=== PATIENT | female | born 1975 | race Caucasian/White ===

== ENCOUNTER 2019-08-09 20:09 | Emergency (ER) | payer OTHER, SELFPAY ==
[2019-08-09 20:10] VITALS: BP 163/93; PULSE 92; RESP 32; TEMP 36.6; O2SAT 100; BMI 36.8
--- NOTE | 2019-08-09 20:15 | EKG12_ITS ---
Test Reason : CP Blood Pressure : / mmHG Vent. Rate : 088 BPM Atrial Rate : 088 BPM P-R Int : 192 ms QRS Dur : 074 ms QT Int : 380 ms P-R-T Axes : 043 000 042 degrees QTc Int : 459 ms Normal sinus rhythm Low voltage QRS Borderline ECG Confirmed by SHANNAN CHIU ([id number]), sports editor SETH VÁSQUEZ ([id number]) on 08/14/2019 12:29:34 PM Referred By: BO Confirmed By:SHANNAN CHIU
[2019-08-09 20:17] VITALS: PULSE 87; RESP 30; O2SAT 100
--- NOTE | 2019-08-09 20:20 | RAD_ITS ---
STUDY: X-RAY CHEST REASON FOR EXAM: Female, 44 years old. Chest pain. TECHNIQUE: Single AP portable view of the chest. COMPARISON: None. FINDINGS: The lungs are clear and expanded. There is no demonstrated pleural abnormality. Normal size heart. Normal mediastinum and mauricio. Normal visualized pulmonary arteries. Normal visualized aortic arch and descending thoracic aorta. Normal visualized thoracic spine. Normal visualized ribs, clavicles, and shoulders. There is no demonstrated abnormality of the visualized soft tissue structures of the upper abdomen. RAD/Chest 1 View (Portable) IMPRESSION: No acute cardiopulmonary disease. Electronically Signed: Frantz Diaz DO at 20:42 EDT Tel [phone], Service support ,
[2019-08-09 20:26] LABS: Absolute Lymphocyte Count 3.07 X10^3/uL (0.83-4.51); Absolute Neutrophil Count 8.1 X10^3/uL (2.0-7.7); Basophil# 0.05 X10^3/uL; Basophil% 0.4 % (0-1); Eosinophil# 0.24 X10^3/uL; Hematocrit 43.1 % (37-47); Hemoglobin 15.2 g/dL (12.0-15.0); Lymphocyte # 3.07 X10^3/ul (4.0); Lymphocyte % 25.2 % (19-41); Mean Corp Hgb Conc 35.3 g/dL (32-36); Mean Corpuscular Volume 93.7 fL (81-99); Mean Platelet Vol. 9.3 fl (6.2-12.0); Monocyte# 0.68 X10^3/uL; Monocyte% 5.6 % (0-10); NRBC Flagged by Analyzer 0 % (0-5); Neutrophil # 8.09 X10^3/uL (2.7-7.7); Neutrophil % 66.6 % (47-70); Platelet Count 355 K/mm3 (150-450); RBC Distribution Width SD 41.3 fl (35.1-43.9); White Blood Count 12.2 K/mm3 (4.4-11.0)
[2019-08-09] MEDS: Aspirin 81 MG TAB.CHEW 324 MG PO (20:27)
[2019-08-09 20:40] LABS: Anion Gap 6 (5-15); BUN 12 mg/dL (7-18); BUN/Creat Ratio 12.5 RATIO (10-20); Calcium,Total 9.8 mg/dL (8.5-10.1); Chloride 106 mmol/L (98-107); Creatinine, Serum 0.96 mg/dL (0.55-1.02); EST Glomerular Filtration Rate 67 mL/min (>60); Est Glom Filt Rate - Afr Amer 81 mL/min (>60); Estimated Creatinine Clearance 67.29 ml/min; Glucose 95 mg/dL (74-106); Potassium 3.4 mmol/L (3.5-5.1); Sodium Level 138 mmol/L (136-145)
[2019-08-09 20:43] LABS: D-Dimer Quantitative (DVT/PE) < 0.27 FEU/ug/m (0.27-0.49)
[2019-08-09 21:16] LABS: AST(SGOT) 20 U/L (15-37); Alanine Aminotransfer ALT/SGPT 30 U/L (13-56); Albumin, Serum 4.4 g/dL (3.2-5.0); Alkaline Phosphatase 82 U/L (45-117); Globulin 3.9 g/dL (2.2-4.2); Protein, Total 8.3 g/dL (6.4-8.2)
--- NOTE | 2019-08-09 21:30 | EKG12_ITS ---
Test Reason : REPEAT Blood Pressure : / mmHG Vent. Rate : 063 BPM Atrial Rate : 063 BPM P-R Int : 234 ms QRS Dur : 080 ms QT Int : 410 ms P-R-T Axes : 005 -17 016 degrees QTc Int : 419 ms Sinus rhythm with 1st degree A-V block Low voltage QRS Borderline ECG Confirmed by SHANNAN CHIU ([id number]), online editor SETH VÁSQUEZ ([id number]) on 08/14/2019 12:29:17 PM Referred By: BO Confirmed By:SHANNAN CHIU
[2019-08-09 21:33] VITALS: BP 120/83; PULSE 72; RESP 16; O2SAT 98
--- NOTE | 2019-08-09 21:52 | ED.DCSUM_ITS ---
- ER Visit Summary Date of Service: 08/09/19 Chief Complaint: Chest discomfort History of Present Illness: The patient is a 44 F history of prior back surgery back fusion. No recent surgery or hospitalization. Patient states his atypical gas-like sensation in her chest at times is uncomfortable. Not associated with exertion. No exertional chest pain nor any exertional dyspnea. No calf pain or swelling. No recent travel, surgery, admission or immobilization. She is never had a DVT or PE. The pain is not pleuritic. She denies any hemoptysis. There is no significant family history of cardiac disease. She is a non-smoker. She denies any shortness of breath. States it can atypical moving discomfort the last several days also in her back. And today it was more anterior. Not associated with food. No abdominal pain. No fever or chills. Physical Examination: Middle-aged female. Anxious. At times upset and tearful. Vital signs are stable. Pulse ox on percent room air no signs of hypoxia. HEENT exam unremarkable. Neck nontender no lymphadenopathy. Lungs good auscultation bilaterally. Heart regular rhythm no murmur rate about 90. Chest wall nontender. No ecchymosis or bruising. No subcu air crepitance. Abdomen soft nontender. Normal bowel sounds no peritoneal signs. No tenderness. No right upper quadrant pain. No Chapin sign. Remedies moves all 4. Calves are nontender without edema or cords. Normal marine pipefitter strength. Normal dorsi plantar flexion. Equal symmetrical radial pulses. Neurologically she is awake and alert with no focal motor or sensory deficits. Back nontender. Her NIH score is 0. Her skin is normal. Test Results: CBC normal. Hemoglobin 15. Electrolytes unremarkable normal creatinine and gap. Liver enzymes normal. Troponin normal. D-dimer normal. Chest x-ray normal. Normal cardiac silhouette and mediastinum. I did go over the x-ray with patient and family. EKG #1 sinus rhythm rate 88 no acute signs of VA or ischemia. EKG #2 done hour and a half after the first again is a sinus rhythm rate of 63 with no acute signs of VA nor ischemia. Emergency Department Course and Treatment: Patient was treated with p.o. aspirin. His atypical story. He has had no recent exertional chest pain or dyspnea. He has very limited cardiac risk factors. She is a non-smoker. No significant family history. Her work-up is negative. On repeat exam at 2150 she is doing well. Feels better. Currently she is having no discomfort. I discussed with her and her family are comfortable being discharged home. Treatment Plan: I spoke with Dr. Lucille Estrada covering for the patient's primary care physician Dr. Cathryn Zaman they will ensure close follow-up and outpatient stress testing if they feel that is necessary. I discussed all this with the patient. Follow-up with PCP tomorrow. Disposition: Discharge Impression: Atypical chest pain uncertain etiology This note was generated with [employer] dictation software. It may contain incorrect words, spelling, and punctuation that were not noted in review of the chart prior to signing ED Disposition - Plan for ED Patient: Referrals: Cathryn Zaman MD [Primary Care Provider] -
--- NOTE | 2019-08-09 21:58 | ED.DEP ---
ED Disposition - Plan for ED Patient: Disposition: Home or Assisted Living Instructions: CHEST PAIN, Uncertain Cause Referrals: Cathryn Zaman MD [Primary Care Provider] - 1 Day Additional Instructions: Your work-up tonight is completely unremarkable. I spoke with Dr. Lucille lugo covering for Dr. Zaman. Call their office tomorrow and set up follow-up appointment with Dr. Zaman they can discuss outpatient stress testing if they feel that is appropriate. Return to the ER if you are feeling worse.
[2019-08-09 22:05] VITALS: BP 125/76; PULSE 69; RESP 16; O2SAT 98
== END 2019-08-09 22:06 | disposition home or self-care (01) ==
PROVIDERS: Emergency Provider Emergency Medicine; Family Provider Internal Medicine; PCP Internal Medicine
DX: R07.89 Other chest pain (principal); Z98.1 Arthrodesis status
CPT/HCPCS: 71045; 80048; 80076; 84484; 85025; 85379; 93005; 99285; A4216

== ENCOUNTER → 2019-08-11 11:09 | Outpatient (CLI) | payer OTHER, SELFPAY ==
[2019-08-09 20:10] VITALS: BMI 36.8
--- NOTE | 2019-08-11 11:12 | RAD_ITS ---
STUDY: X-RAY - CERVICAL SPINE REASON FOR EXAM: Female, 44 years old. TECHNIQUE: 5 view(s) of the cervical spine were obtained. COMPARISON: None FINDINGS: Normal anterior atlantoaxial articulation. Normal odontoid process. There is straightening of the normal cervical lordosis. Normal vertebral bodies and endplates. Normal disc space heights. Normal visualized intervertebral neuroforamina. The soft tissue structures are unremarkable. RAD/Cerv Spine 4 or 5 Views IMPRESSION: No disc space narrowing or foraminal stenosis. Electronically Signed: Bandar Nash MD (Brooks) at 17:17 EDT , Service support ,
== END ==
PROVIDERS: Family Provider Internal Medicine; PCP Internal Medicine; Referring Provider Nurse Practitioner; Visit Provider Nurse Practitioner
DX: R07.89 Other chest pain (principal); M54.2 Cervicalgia
CPT/HCPCS: 72050; 84484

== ENCOUNTER → 2019-08-21 11:04 | Outpatient (CLI) | payer OTHER, SELFPAY ==
[2019-08-09 20:10] VITALS: BMI 36.8
== END ==
PROVIDERS: Family Provider Internal Medicine; PCP Internal Medicine; Referring Provider Nurse Practitioner; Visit Provider Nurse Practitioner
DX: M54.2 Cervicalgia (principal); R07.89 Other chest pain
CPT/HCPCS: 93225; 93226

== ENCOUNTER → 2019-09-11 09:47 | Outpatient (CLI) | payer OTHER, SELFPAY ==
--- NOTE | 2019-09-11 09:50 | ECHOCS_ITS ---
Reason For Study: ATYPICAL CHEST PAIN Procedure This was a 2D Doppler, Color Flow transthoracic echocardiogram. The study was technically difficult. Contrast injection was performed. Exam performed in department. Left Ventricle Normal LV size. Left ventricular systolic function is normal. The estimated ejection fraction is 65 %. No evidence for diastolic dysfunction. No regional wall motion abnormalities noted. Right Ventricle Normal RV size. Normal systolic function. Atria Normal left atrium. Normal right atrium. No doppler evidence for ASD. Mitral Valve There is no mitral annular calcification. Equivocal mitral valve prolapse. Trivial mitral valve insufficiency. Tricuspid Valve Normal tricuspid valve. Trivial tricuspid valve insufficiency. Unable to estimate RV systolic pressure/pulmonary artery pressure due to technically difficult study. Aortic Valve Trisinus/trileaflet aortic valve. Normal aortic valve. Pulmonic Valve The pulmonic valve is not well visualized. Trivial pulmonic valve insufficiency. Great Vessels Normal sized aortic root. Pericardium/Pleural No pericardial effusion. Medication 22 gauge I.V. with prn adaptor inserted into right arm. Definity3.0ml given slow IV push to enhance endocardial definition. MMode/2D Measurements & Calculations LVIDd: 4.8 cm IVSd: 0.81 cm Ao root diam: 3.1 cm LVIDs: 3.7 cm LVPWd: 0.84 cm RVDd: 4.0 cm FS: 23.9 % LAV(MOD-bp): 46.0 ml EDV(MOD-sp4): 142.6 ml EDV(MOD-sp2): 113.2 ml LAV(MOD-bp) Indexed: 22.6 ml/m2 ESV(MOD-sp4): 64.7 ml EF(MOD-sp2): 50.5 % LAV(MOD-sp2): 44.2 ml EF(MOD-sp4): 54.6 % LAV(MOD-sp4): 43.9 ml SV(MOD-sp4): 77.9 ml SV(MOD-sp2): 57.1 ml LA A4 area: 17.1 cm2 LA dimension(2D): 3.4 cm RA A4 area: 15.3 cm2 Time Measurements MV dec time: 0.19 sec Doppler Measurements & Calculations MV E max sunny: 80.8 cm/sec Lat Peak E' Sunny: 10.1 cm/sec Med Peak E' Sunny: 8.2 cm/sec MV A max sunny: 55.6 cm/sec E/E' lat: 8.0 E/E' med: 9.9 MV E/A: 1.5 Ao V2 max: 103.3 cm/sec LV V1 max: 95.9 cm/sec PA V2 max: 90.3 cm/sec Ao max P.3 mmHg LV V1 max P.7 mmHg Interpretation Summary The study was technically difficult. Contrast injection was performed. Left ventricular systolic function is normal. The estimated ejection fraction is 65 %. Equivocal mitral valve prolapse. Trivial mitral valve insufficiency. Trivial tricuspid valve insufficiency. Trivial pulmonic valve insufficiency. Unable to estimate RV systolic pressure/pulmonary artery pressure due to technically difficult study. No evidence for diastolic dysfunction. Ordering Physician: Saira Gorman Referring Physician: Saira Gorman Performed By: Rox Hutton, GARRY, RVT
== END ==
PROVIDERS: Family Provider Nurse Practitioner; PCP Nurse Practitioner; Referring Provider Nurse Practitioner; Visit Provider Nurse Practitioner
DX: R07.89 Other chest pain (principal); M54.2 Cervicalgia
CPT/HCPCS: 93306; Q9957; A4216; C8929

== ENCOUNTER → 2019-10-16 09:52 | Outpatient (CLI) | payer OTHER, SELFPAY ==
[2019-10-16 10:12] LABS: Absolute Lymphocyte Count 1.62 X10^3/uL (0.83-4.51); Absolute Neutrophil Count 5.8 X10^3/uL (2.0-7.7); Basophil# 0.03 X10^3/uL; Basophil% 0.4 % (0-1); Eosinophil# 0.28 X10^3/uL; Eosinophils% 3.4 % (0-5); Hematocrit 41.6 % (37-47); Hemoglobin 14.2 g/dL (12.0-15.0); Lymphocyte # 1.62 X10^3/ul (4.0); Lymphocyte % 19.8 % (19-41); Mean Corp Hgb Conc 34.1 g/dL (32-36); Mean Corpuscular Hgb 32.4 pg (27.0-32.0); Mean Platelet Vol. 9.5 fl (6.2-12.0); Monocyte% 4.9 % (0-10); NRBC Flagged by Analyzer 0 % (0-5); Neutrophil # 5.83 X10^3/uL (2.7-7.7); Platelet Count 296 K/mm3 (150-450); RBC Distribution Width CV 12.1 % (11.6-14.6); RBC Distribution Width SD 42.3 fl (35.1-43.9); Red Blood Count 4.38 M/mm3 (4.2-5.4); White Blood Count 8.2 K/mm3 (4.4-11.0)
[2019-10-16 10:21] LABS: ALB/GLOB Ratio 1.2 RATIO (0.9-2.4); AST(SGOT) 38 U/L (15-37); Alanine Aminotransfer ALT/SGPT 62 U/L (13-56); Albumin, Serum 3.8 g/dL (3.2-5.0); Alkaline Phosphatase 109 U/L (45-117); Anion Gap 6 (5-15); BUN 13 mg/dL (7-18); BUN/Creat Ratio 15.7 RATIO (10-20); Calcium,Total 8.7 mg/dL (8.5-10.1); Chloride 110 mmol/L (98-107); Cholesterol 194 mg/dL (200); Creatinine, Serum 0.83 mg/dL (0.55-1.02); EST Glomerular Filtration Rate 79 mL/min (>60); Est Glom Filt Rate - Afr Amer 96 mL/min (>60); Globulin 3.3 g/dL (2.2-4.2); Glucose 99 mg/dL (74-106); High Density Lipoprotein 51 mg/dL; Potassium 4.3 mmol/L (3.5-5.1); Protein, Total 7.1 g/dL (6.4-8.2); Sodium Level 142 mmol/L (136-145); Triglycerides 92 mg/dL; Very Low Density Lipoprotein 18 mg/dL (5-40)
[2019-10-17 10:44] LABS: Myoglobin, Serum 28 ng/mL (25-58)
== END ==
PROVIDERS: Family Provider Nurse Practitioner; PCP Nurse Practitioner; Referring Provider Nurse Practitioner; Visit Provider Nurse Practitioner
DX: R07.89 Other chest pain (principal)
CPT/HCPCS: 80053; 80061; 83874; 84484; 85025

== ENCOUNTER → 2019-10-21 10:19 | Outpatient (CLI) | payer OTHER, SELFPAY ==
[2019-10-19 09:29] VITALS: BMI 35.0
--- NOTE | 2019-10-21 10:23 | US_ITS ---
STUDY: ABDOMINAL ULTRASOUND - RIGHT UPPER QUADRANT REASON FOR VISIT: Female, 44 years old chest pain with abnormal laboratory values TECHNIQUE: Ultrasound evaluation of the right upper quadrant was performed with real-time and static nix-scale imaging. TECHNICAL QUALITY: Adequate. COMPARISON: None. FINDINGS: Liver: The liver measures 17 cm. There is normal echogenicity of the liver. The bile ducts are within normal limits. There is hepatic color flow. The direction of portal flow is hepatopetal. There is no demonstrated mass lesion. Gallbladder: Normal distended gallbladder. The gallbladder wall measures 2.9 mm. There is a negative sonographic Chapin''s sign. There is no pericholecystic fluid. No shadowing gallstones. There is a 7 mm nonmobile, nonshadowing structure of the dependent gallbladder wall without vascular flow demonstrated. Common Bile Duct (C.B.D.): The common bile duct measures 4 mm. Pancreas: Normal size of the head, body and tail of the pancreas. There is normal echogenicity of the pancreas. There is no demonstrated pancreatic mass or cyst. Right Kidney: Normal size of the right kidney. The right kidney measures 11.4 x 5.5 x 5.4 cm. Normal renal cortex. The right cortex measures 2.0 cm. There is no demonstrated renal mass or cyst. There is no right hydronephrosis. US/Abdomen Limited IMPRESSION: 1. No shadowing gallstones or biliary dilation. 2. 7 mm gallbladder polyp versus adherent, tumefactive sludge. Electronically Signed: Bandar Nash MD (Brooks) at 13:04 EST , Service support ,
== END ==
PROVIDERS: Family Provider Nurse Practitioner; PCP Nurse Practitioner; Referring Provider Nurse Practitioner; Visit Provider Nurse Practitioner
DX: R74.8 Abnormal levels of other serum enzymes (principal)
CPT/HCPCS: 76705

== ENCOUNTER → 2019-10-27 10:48 | Outpatient (CLI) | payer OTHER, SELFPAY ==
[2019-10-19 09:29] VITALS: BMI 35.0
--- NOTE | 2019-10-27 10:51 | NM_ITS ---
CLINICAL: 44-year-old female with history of epigastric pain. RADIONUCLIDE HEPATOBILIARY SCINTIGRAPHY COMPARISON: Abdominal ultrasound report 10/21/2019 FINDINGS: Following the intravenous administration of 5.5 mCi of 99m Tc Mebrofenin, hepatobiliary images reveal: 1. Relatively prompt and homogeneous radiopharmaceutical concentration is noted by a normal sized liver. No parenchymal defects are identified. 2. Gallbladder activity is identified at 15 minutes post radiopharmaceutical administration. 3. Small intestinal tract is observed at 30 minutes following tracer injection. 4. Washout of the radiopharmaceutical by the hepatic parenchyma appears qualitatively normal. Cholecystokinin (0.02 ug/kg) was administered intravenously over a 30-minute period. The post CCK gallbladder ejection fraction calculated at 19 minutes following Cholecystokinin administration was noted to be 26.0 % (normal greater than 35%). NM/Hepatobilliary Imaging IMPRESSION: 1. ABNORMAL 99m Tc Mebrofenin hepatobiliary imaging examination with Cholecystokinin. A. A gallbladder ejection fraction calculated to be less than 35% following the administration of Cholecystokinin is consistent with the presence of functional hepatobiliary disease (gallbladder and/or sphincter of Oddi dyskinesia) and/or organic hepatobiliary disease (chronic acalculous cholecystitis and/or cystic duct syndrome) in patients with intermediate to high pretest probabilities of hepatobiliary illness. (Yasmeen Vo et al, Journal of Nuclear Medicine 32:1695, 1991). Electronically Signed: Roger Arias DO at 12:51 EST Tel , Service support ,
== END ==
PROVIDERS: Family Provider Nurse Practitioner; PCP Nurse Practitioner; Referring Provider Nurse Practitioner; Visit Provider Nurse Practitioner
DX: R93.5 Abnormal findings on diagnostic imaging of other abdominal regions, including retroperitoneum (principal)
CPT/HCPCS: 78226; A9537; J2805

== ENCOUNTER 2019-12-18 13:54 | Day surgery (SDC) | payer OTHER, SELFPAY ==
[2019-12-06 08:36] VITALS: BMI 35.0
--- NOTE | 2019-12-06 09:14 | HP_ITS ---
Intake Vital Signs 12/06/19 BMI 35.0 12/06/19 Height 5 ft 5 in 12/06/19 Weight: 215 lb 12/06/19 BMI 35.7 12/06/19 BP 125/82 H 12/06/19 Blood Pressure Location Rt brachial 12/06/19 Position Sitting 12/06/19 Respiration 16 12/06/19 Pulse 76 12/06/19 Pulse Source Monitor 12/06/19 Temp 97.9 F 12/06/19 Temp Source Oral 12/06/19 Pulse Oximetry (%) 100 12/06/19 Oxygen Delivery Method room air Intake Visit Reasons: recheck epigastric pain Chief Complaint: abn hida Optical Scientist Required: No Is patient in pain?: No Allergies No Known Allergies Allergy (Verified 12/06/19 08:36) Medications multivitamin,xp-[id number] 1 tab PO QDAY 12/21/17 [History Confirmed 12/06/19] omeprazole 20 mg capsule,delayed release 40 mg PO DAILY cap 11/06/19 [History Confirmed 12/06/19] sucralfate 1 gram tablet 1 g PO QACHS #120 tab 11/06/19 [Rx Confirmed 12/06/19] PFSH Medical History Chest pain (Acute) Leukocytosis (Acute) Anxiety (Chronic) Chronic back pain (Chronic) Depression (Chronic) Conjunctivitis (Resolved) Surgical History History of (Resolved) History of back surgery (Resolved) History of tonsillectomy (Resolved) History of tubal ligation (Resolved) history of back fusion (Resolved) Family History Father Diabetes CAD (coronary artery disease) Dementia Mother Breast cancer Social History (Updated 12/06/19 @ 09:14 by Amadeo Clinton MD) Smoking Status: Never smoker alcohol intake: current alcohol intake frequency: a few times a week substance use type: does not use caffeine: Yes HPI HPI HPI: ZELDA YOUSSEF, is a 44 F who presents to the office today for HPI HPI Surgical H&P: Yes HPI: ZELDA YOUSSEF, is a 44 F who presents to the office today for Follow-up. The patient is still having epigastric and chest burning with no resolution despite a month of Carafate and PPI. She also reports that she had a few days last week of upset stomach where she was nauseous and not feeling well. ROS General General: Yes fatigue; no weight change, appetite, colon cancer, breast cancer or weakness HEENT HEENT: No difficulty swallowing, eye injury, eye surgery, swollen glands or hoarseness Endo Endocrine: No thyroid disease, diabetes mellitus, thyroid cancer, Hair loss, heat intolerance or cold intolerance Musc Musculoskeletal: Yes back problems; no arthritis, rheumatoid arthritis, gout or joint pain Cardio Cardiovascular: No murmur, pacemaker, heart disease, atrial fibrillation, high blood pressure, heart attack, heart stent, palpitations, shortness of breat with exertion or chest pain Resp Respiratory: No shortness of breath, No sleep apnea, No cough, No COPD, No asthma, No emphysema, No wheezing Gastro Gastrointestinal: No abdominal pain, No nausea or vomiting, No diarrhea, No constipation, No blood in stool, No acid reflux, No hemorrhoids, No ulcers, No gallbladder problem, No black,tarry stools Dequan Hematologic: No blood thinners, No blood disorders, No bleeding, No anemia, No blood clots Neuro Neurologic: No weakness Exam Const General: cooperative Orientation: alert, oriented x3 HENMT Head: normal to inspection Ears: hearing grossly normal bilaterally Eyes General: appearance normal, both eyes and all related structures Visual Charles: normal visual charles by confrontation Neck Neck: normal visual inspection Chest Chest palpation & inspection: normal inspection of the chest Resp Effort & Inspection: normal respiratory effort Auscultation: clear to auscultation bilaterally Cardio Rate: regular rate Rhythm: regular rhythm Heart Sounds: no murmurs GI Inspection: non-distended Palpation: soft, nontender Musc Cervical Spine: normal cervical lordosis, cervical ROM normal Skin General: no rashes or lesions noted Neuro General: alert, oriented x3 Cranial Nerves: CN's II-XI intact bilaterally Cognition: normal cognition Extrem General: normal to inspection, full ROM Psych Appearance: grossly normal Affect: normal affect Assessment & Plan Problems 1. Biliary dyskinesia K82.8 Plan The patient had a month of Carafate and PPI with no resolution of symptoms. She is still experiencing epigastric pain and occasional burning in her chest. If she did have peptic ulcer disease this should have resolved with a PPI and Carafate. She had a HIDA scan which showed decreased ejection fraction. I believe this point it is prudent to perform a laparoscopic cholecystectomy. I discussed the procedure in detail with the patient. I discussed the risks, benefits, and alternatives of the procedure. I discussed the risks including but not limited to bleeding, infection, injury to surrounding organs such as the liver, bile duct, bowels. I did discuss the possibility of having to convert to an open procedure as well as the possibility that if any injuries occurred this may necessitate further surgery at a tertiary care center. The patient will discuss with her and decide on surgery. If she does want to proceed I will get her booked for laparoscopic cholecystectomy. Amadeo Clinton MD Pager: [facility] [address] [place] [address] [address] [place] [address] Office: Coding Level of Care Code Off vis,est,level 4 Diagnoses Biliary dyskinesia K82.8 Time Spent (min) 45 12/06/19 0914 <Electronically signed by Amadeo collins MD> Date _ Amadeo Clinton MD I have re-examined the patient. There are no clinical changes since date of exam.
[2019-12-18] VITALS (8 sets, daily range): BP systolic 128–144; BP diastolic 67–83; PULSE 49–68; RESP 16; TEMP 36.3–37.2; O2SAT 97–100; BMI 36.2
--- NOTE | 2019-12-18 14:08 | EKG12_ITS ---
Test Reason : PRE OP Blood Pressure : / mmHG Vent. Rate : 062 BPM Atrial Rate : 062 BPM P-R Int : 224 ms QRS Dur : 084 ms QT Int : 416 ms P-R-T Axes : 027 -10 038 degrees QTc Int : 422 ms Sinus rhythm with sinus arrhythmia with 1st degree A-V block Otherwise normal ECG When compared with ECG of 09-AUG-2019 21:38, No significant change was found Confirmed by SHANNAN CHIU ([id number]), medical transcription editor SETH VÁSQUEZ ([id number]) on 12/22/2019 1:24:35 PM Referred By: Amadeo Clinton Confirmed By:SHANNAN CHIU
[2019-12-18] MEDS: Lactated Ringers 1,000 ML 100 ML IV ×2 (14:38→17:54)
--- NOTE | 2019-12-18 16:00 | RAD_ITS ---
PROCEDURE: INTRAOPERATIVE CHOLANGIOGRAM. REASON FOR EXAM: Female, 44 years old. Pain. FLUOROSCOPY TIME (if supplied): 0:10.5 minutes/seconds RADIATION DOSAGE (If Supplied By Facility): 4.55 mGy TECHNIQUE: Real-time fluoroscopy was provided during intraoperative contrast infusion via the cystic duct. A cine run of 62 fluoroscopic images was captured. COMPARISON: Right upper quadrant ultrasound October 21, 2019. FINDINGS: Normal caliber intra-and extrahepatic bile ducts. No filling defects or strictures seen. Contrast flows to the duodenum. RAD/Cholangiogram/ O R,Initial IMPRESSION: Normal intraoperative cholangiogram. Electronically Signed: Asad Mireles MD at 20:08 EST , Service support ,
--- NOTE | 2019-12-18 16:00 | GALL_PTH ---
PATIENT: ZELDA YOUSSEF LOC: [facility] U#:[id number] AGE/SX: 44/F ROOM: RE12/18/[address]: Dr. Amadeo Clinton MD : 1975 BED: DIS: 12/18/2019 SPEC #: [id number] RECD: 12/19/19 13:59 STATUS: STEVEN ELY #: [id number] ANI: 12/18/19 16:[address]: Amadeo Clinton DEPT: SURGICAL PATHOLOGY RECD BY: Ginger Alvarado ENTERED: 12/19/19 14:29 SP TYPE: ZACHERY MARIE DR: Saira Gorman, TOW OPERATOR-C Tissues: Gallbladder, NOS Procedures: Surgery Specimen Level III HEADER OPERATION: Laparoscopic cholecystectomy with intraoperative cholangiogram PRE-OP DIAGNOSIS: Biliary dyskinesia K82.8 TISSUE SUBMITTED: Gallbladder MICROSCOPIC DIAGNOSIS Gallbladder, cholecystectomy: Mild chronic cholecystitis. No stones are identified in the container or in the gallbladder. SJ:princess 12/20/19 MICROSCOPIC DESCRIPTION Slides are reviewed. GROSS DESCRIPTION Received is one container labeled with the patient's name and designated gallbladder. The specimen consists of a gallbladder measuring 6.5 cm in length and up to 3.5 cm in diameter. The external surface is pink-santacruz, smooth and glistening for the most part. Focally it is granular, hemorrhagic and contains cautery artifact. The gallbladder contains a small amount of green-yellow mucoid bile. No stones are identified in the container or in the gallbladder. The gallbladder wall measures up to 0.2 cm in thickness. Cigarette Making Examiner sections from the gallbladder and the cystic duct are submitted in one cassette. / ANNA:princess 12/19/19 TC:3 CPT: 50370
[2019-12-18] MEDS: Bupiv/Epi 0.25% 30 ML Vial (17:28)
--- NOTE | 2019-12-18 17:36 | PCM.OPRPT ---
Problem List (1) Biliary dyskinesia Status: Acute Report of Operation Date of Procedure: 12/18/19 Pre-Operative Diagnosis: Biliary dyskinesia Post-Operative Diagnosis: Same Surgery/Procedure Performed:: Laparoscopic cholecystectomy with cholangiogram Specimen's removed: Gallbladder and contents Description of Procedure: After obtaining informed consent patient was brought back to the operating room. General anesthesia was induced. The abdomen was prepped and draped in usual sterile fashion. A small midline incision was made superior to the umbilicus and deepened to the level of fascia. The fascia was elevated and incised. Next the peritoneum was elevated and incised in the same fashion. Finger sweep was performed and the Batres trocar was placed into the abdomen. The balloon was inflated. The abdomen was inflated to 15 mmHg. Next a camera was introduced into the abdomen and the abdomen was inspected. Next under direct visualization three 5-mm ports were placed one subxiphoid and 2 subcostal. Next the gallbladder was elevated and retracted toward the right shoulder. The gallbladder was very distended. The gallbladder was punctured and drained of its contents. The peritoneum was stripped from the gallbladder. The infundibulum was located and retracted laterally. Next the triangle of Calot was dissected and the cystic duct and cystic artery were identified. Cholangiograms were performed. The Thorne clamp was used to clamp across the infundibulum and the catheter needle was inserted into the gallbladder. Under fluoroscopy contrast was instilled into the gallbladder and the common duct, cystic duct as well as proximal hepatic ducts were identified. There was good filling of the duodenum. There were no filling defects noted in the common bile duct. The clamp was removed as well as the needle and the infundibulum was grasped once more. Three hemolock clips were placed across the cystic duct. The cystic duct was then divided leaving 2 clips on the stump. The cystic artery was clipped and divided in the same fashion. The hook cautery was then used to take the gallbladder off of the gallbladder bed. Hemostasis was obtained. Gallbladder fossa was irrigated and no active bleeding or bile leakage was noted. Next the camera switched to a 5 mm camera and introduced in the subxiphoid port. An Endopouch bag was placed through the umbilical port and the gallbladder was placed into it. The gallbladder was then removed through the umbilical incision. The camera was then reinserted through the umbilical port. The gallbladder fossa was inspected once more and noted to be hemostatic with no leaking bile. The abdomen was suctioned dry. The 5 mm ports were removed under direct visualization. The umbilical port was then removed and the air was removed from the abdomen. Next using an 0 Vicryl suture the umbilical fascia was closed in a uyxamh-lh-[id number] fashion. The umbilical port site was irrigated local anesthetic was administered to all the incisions. All the incisions were closed with interrupted subcuticular 4-0 Monocryl sutures followed by Steri-Strips and dressings. The patient was awoken and taken to PACU in stable condition. - Admit VTE Documentation VTE Mechan Device Prophylaxis: SCD's
--- NOTE | 2019-12-18 17:39 | DCINST_ITS ---
Discharge Diet: Light diet - advance as tolerated Discharge Activity: Return to Normal Activity, May Not Drive - for 2-3 days or while taking narcotic pain medicataions., - - Do not drive, work heavy equipment or sign legal documents for 24 hours. May shower in (days): 1 - with the bandage in place. Lifting Restrictions: 20 lbs for 2 weeks Additional Activity Instructions:: Pain medication may cause nausea. You should typically eat light foods as you take your pain medications. Pain medication may also cause constipation. If this is a problem for you, please discuss with your doctor. Call your doctor if your incision/area has: Continuous Slow Oozing, Sudden Increased Bleeding, Increased Pain/ Swelling, Increased Redness, Foul Smelling Discharge, Fever of 101 or Higher Call your doctor if you observe: Fever of 101 or Higher Suture Line Care: Avoid Pulling/Pushing, Avoid Pinching/Bending Additional Dressing/Incision Instructions:: Leave operative bandaids on for 2 days. When you remove dressing, leave Steri-Strips on until your follow-up appointment, or until the Steri-Strips fall off on their own. Allergies/Adverse Reactions: Allergies No Known Allergies Allergy (Verified 12/18/19 14:27) Medications to take at Discharge multivitamin,me-tpey-[id number] 1 tab PO QDAY 12/21/17 Oxycodone HCl/Acetaminophen [Percocet 5-325 mg Tablet] 1 - 2 tab PO Q6H PRN 5 Days #30 tablet 12/18/19 The following prescriptions were given: Oxycodone HCl/Acetaminophen [Percocet 5-325 mg Tablet] 1 - 2 tab PO Q6H PRN 5 Days #30 tablet PRN Reason: Pain Score 4-10/10 Transmission Status: Sent to [facility]/pharmacy #[id number] Primary Care Physician: Saira Gorman NP-C [Primary Care Provider] - Test Results: Test results from this visit will be discussed in further detail at your follow- up appointment, if applicable. Please Follow Up With: Amadeo Clinton MD When: Please call to schedule 2 week follow up appointment. [phone]
[2019-12-18] MEDS: oxyCODONE 5 MG Tablet PO (19:18)
[2019-12-18] MEDS: Acetaminophen 325 MG Tablet PO (19:18)
== END 2019-12-18 20:21 | disposition home or self-care (01) ==
LOC: SDC 13:56 → AC 13:57
PROVIDERS: PCP Nurse Practitioner; Referring Provider Surgery; Visit Provider Surgery
PROC: (CPT 47610; principal; 2019-12-18 15:40)
DX: K81.1 Chronic cholecystitis (principal); G89.29 Other chronic pain; M54.9 Dorsalgia, unspecified
CPT/HCPCS: 47563; 74300; 76000; 88304; 93005; J7120; J2405

== ENCOUNTER → 2023-03-04 | Outpatient (CLI) | payer BC, SELFPAY ==
[2023-03-04 15:17] LABS: Absolute Lymphocyte Count 1.76 X10^3/uL (0.83-4.51); Absolute Neutrophil Count 5.4 X10^3/uL (2.0-7.7); Basophil# 0.03 X10^3/uL; Basophil% 0.4 % (0-1); Eosinophil# 0.18 X10^3/uL; Eosinophils% 2.3 % (0-5); Hemoglobin 13.4 g/dL (12.0-15.0); Lymphocyte # 1.76 X10^3/ul (0.83-4.51); Lymphocyte % 22.7 % (19-41); Mean Corp Hgb Conc 33.5 g/dL (32-36); Mean Corpuscular Hgb 32.4 pg (27.0-32.0); Mean Corpuscular Volume 96.6 fL (81-99); Mean Platelet Vol. 9.7 fl (6.2-12.0); Monocyte# 0.35 X10^3/uL; Monocyte% 4.5 % (0-10); NRBC Flagged by Analyzer 0 % (0-5); Neutrophil # 5.42 X10^3/uL (2.7-7.7); Neutrophil % 69.7 % (47-70); Platelet Count 302 K/mm3 (150-450); RBC Distribution Width CV 12.6 % (11.6-14.6); RBC Distribution Width SD 44.3 fl (35.1-43.9); Red Blood Count 4.14 M/mm3 (4.2-5.4); White Blood Count 7.8 K/mm3 (4.4-11.0)
[2023-03-04 15:37] LABS: ALB/GLOB Ratio 1.1 RATIO (0.9-2.4); AST(SGOT) 15 U/L (15-37); Alanine Aminotransfer ALT/SGPT 25 U/L (13-56); Albumin, Serum 3.9 g/dL (3.2-5.0); Alkaline Phosphatase 69 U/L (45-117); Anion Gap 3 (5-15); BUN 12 mg/dL (7-18); BUN/Creat Ratio 17.2 RATIO (10-20); Chloride 108 mmol/L (98-107); Cholesterol 181 mg/dL (200); EST Glomerular Filtration Rate 95 mL/min (>60); Est Glom Filt Rate - Afr Amer 115 mL/min (>60); Globulin 3.5 g/dL (2.2-4.2); Glucose 91 mg/dL (74-106); Hemoglobin A1c 4.9 % (3.8-5.6); High Density Lipoprotein 46 mg/dL; Potassium 3.6 mmol/L (3.5-5.1); Protein, Total 7.4 g/dL (6.4-8.2); Sodium Level 136 mmol/L (136-145); Triglycerides 132 mg/dL; Very Low Density Lipoprotein 26 mg/dL (5-40)
[2023-03-04 15:49] LABS: Microalbumin,Random Urine < 5.0 mg/L (NO RANGE EST.)
== END | disposition home or self-care (01) ==
LOC: MFPLAB 12:12
PROVIDERS: PCP Nurse Practitioner; Visit Provider Family Medicine
DX: R07.9 Chest pain, unspecified (principal)
CPT/HCPCS: 36415; 80053; 80061; 82043; 83036; 85025

== ENCOUNTER → 2023-04-07 | Outpatient (CLI) | payer BC, SELFPAY ==
--- NOTE | 2023-04-07 08:57 | RAD_ITS ---
STUDY: X-RAY - ESOPHAGUS (BARIUM SWALLOW) WITH FLUOROSCOPY REASON FOR EXAM: Female, 47 years old. Dysphagia TECHNIQUE: 21 view(s) of the esophagus were obtained following swallowing of barium. FLUOROSCOPY TIME (if supplied): (36) minutes/seconds. 15.64 mGy COMPARISON: None. FINDINGS: There is no demonstrated esophageal foreign body. There is no demonstrated stricture or mucosal abnormality. Normal gastroesophageal junction, without a demonstrated hiatal hernia. The patient ingested a 12 mm tablet of barium without any difficulty. Normal visualized aortic arch and descending thoracic aorta. Normal visualized pulmonary parenchyma. Normal visualized osseous structures of the thorax. RAD/Esophagus Dual Contrast IMPRESSION: Normal plain film x-ray examination (barium swallow) of the esophagus. Electronically Signed: Christopher Eisenberg MD at 15:09 EDT ,
== END | disposition home or self-care (01) ==
LOC: RAD 08:50
PROVIDERS: PCP Family Medicine; Referring Provider Family Medicine; Visit Provider Family Medicine
DX: R13.10 Dysphagia, unspecified (principal)
CPT/HCPCS: 74221

== ENCOUNTER → 2023-07-07 | Outpatient (CLI) | payer BC, SELFPAY ==
[2023-07-14 08:11] LABS: HPV APTIMA, High Risk Negative (Negative)
== END | disposition home or self-care (01) ==
LOC: LABSPEC 16:56
PROVIDERS: PCP Family Medicine; Referring Provider Registered Nurse; Visit Provider Registered Nurse
DX: Z12.4 Encounter for screening for malignant neoplasm of cervix (principal)
CPT/HCPCS: 87624; 88175; G0145

== ENCOUNTER → 2023-08-10 | Outpatient (CLI) | payer BC, SELFPAY ==
--- NOTE | 2023-08-10 15:14 | BI_ITS ---
MAMMOGRAPHY - BILATERAL SCREENING REASON FOR EXAM: Female, 48 years old. Routine annual screening examination. PERTINENT HISTORY: Mother with breast cancer. TECHNIQUE: Digital bilateral breast carolyn (3D mammographic acquisition) in the CC and MLO projections. 2-D mediolateral oblique (MLO) and craniocaudad (CC) views of both breasts were obtained. CAD: Full Field Digital Mammography with Computer Added Detection was performed. COMPARISON: Comparison is made with prior study dated October 22, 2014. FINDINGS: Breast Composition: The breasts are heterogeneously dense, which may obscure small masses. There are no dominant masses or suspicious calcifications. No other significant abnormalities are identified. There has been no significant change since the prior study. BI/SCRN MAMM (CAD)W/CAROLYN BILAT IMPRESSION: Stable bilateral screening mammogram. Yearly follow-up mammogram recommended. (A) ASSESSMENT CATEGORY: BIRADS Category 1: Negative. A letter regarding these results will be sent to the patient by the facility within 30 days. Approximately 10% of breast cancers are not detected by mammography. A normal mammogram should not delay biopsy of a clinically suspicious abnormality. [id number] Electronically Signed: Christopher Eisenberg MD at 8:45 EDT ,
== END | disposition home or self-care (01) ==
LOC: OPBI 15:13
PROVIDERS: PCP Family Medicine; Referring Provider Registered Nurse; Visit Provider Registered Nurse
DX: Z12.31 Encounter for screening mammogram for malignant neoplasm of breast (principal); Z80.3 Family history of malignant neoplasm of breast
CPT/HCPCS: 77063; 77067

== ENCOUNTER 2024-09-28 13:27 | Emergency (ER) | payer BC, SELFPAY ==
[2024-09-28 13:32] VITALS: BP 153/80; BP 180/103; PULSE 84; PULSE 87; RESP 16; RESP 26; TEMP 36.1; O2SAT 100; O2SAT 98; BMI 39.1
--- NOTE | 2024-09-28 13:51 | CT_ITS ---
STUDY: CTA HEAD AND NECK WITH CONTRAST REASON FOR EXAM: Female, 49 years old. Dizziness. Left-sided cervical pain and tingling. RADIATION DOSAGE (If Supplied By Facility): CTDIvol = ( 30.05 ) mGy, DLP = ( 1600.24 ) mGycm TECHNIQUE: CT angiography was performed with a multi-detector CT scanner. Data acquisition was obtained from the skull base through the vertex following intravenous administration of IV 100mL Isovue-370. MIP images were reconstructed from the axial data set. Post-processing of the angiographic images was performed, with multiplanar reformation and 3D reconstruction. Individualized dose optimization techniques were used for this CT. COMPARISON: No relevant priors. FINDINGS: Normal bilateral petrous carotid arteries. Normal right cavernous carotid artery with a normal supraclinoid bifurcation. Normal left cavernous carotid artery with a normal supraclinoid bifurcation. Normal right A1 segments of the anterior cerebral artery. Normal left A1 segments of the anterior cerebral artery. Normal intact anterior communicating artery (ACOM). Normal bilateral A2 segments of the anterior cerebral arteries. Normal right M1 and M2 segments of the middle cerebral arteries, with a normal M1 bifurcation. Normal left M1 and M2 segments of the middle cerebral arteries, with a normal M1 bifurcation. Normal right posterior communicating artery (PCOM). Normal left posterior communicating artery (PCOM). Normal bilateral vertebral arteries. Normal basilar artery with a normal basilar bifurcation. The visualized bilateral superior cerebellar (SCA) arteries are normal. Normal bilateral P1, P2 and visualized P3 segments of the posterior cerebral arteries. There is no demonstrated aneurysm of the [place]. There is no demonstrated abnormality of the visualized brain. Mild enlargement of the right lobe of the thyroid. There is a 5.5 cm hypodensity in the midportion of the right lobe of the thyroid. The left lobe of the thyroid gland is not visualized. AORTIC ARCH: Normal visualized aortic arch. Normal origins of the brachiocephalic, left common carotid, and left subclavian arteries. RIGHT CAROTID ARTERIES: Normal right common carotid artery (CCA). Normal right common carotid bulb. Normal origin of the right internal carotid (ICA) artery without a hemodynamically significant stenosis. Normal visualized cervical portion of the right internal carotid artery. Normal origin of the right external carotid artery (ECA). LEFT CAROTID ARTERIES: Normal left common carotid artery (CCA). Normal left common carotid bulb. Normal origin of the left internal carotid (ICA) artery without a hemodynamically significant stenosis. Normal visualized cervical portion of the left internal carotid artery. Normal origin of the left external carotid artery (ECA). VERTEBRAL ARTERIES: Normal bilateral vertebral arteries. CT/CTA Head AND Neck W/ Contrast IMPRESSION: Normal CTA Head and neck with contrast. Electronically Signed: Christopher Eisenberg MD at 14:51 EST ,
--- NOTE | 2024-09-28 13:53 | EKG12_ITS ---
Test Reason : HTN Blood Pressure : */* mmHG Vent. Rate : 59 BPM Atrial Rate : 59 BPM P-R Int : 220 ms QRS Dur : 90 ms QT Int : 416 ms P-R-T Axes : 31 -7 20 degrees QTcB Int : 411 ms Sinus bradycardia with 1st degree A-V block Low voltage QRS Borderline ECG Confirmed by ELMER ROMEO ([id number]), primer expeditor and drier MAVIS SALDANA ([id number]) on 09/29/2024 11:52:45 AM Referred By: Confirmed By: ELMER ROMEO
[2024-09-28] MEDS: diazePAM 5 MG Tablet PO (13:59)
[2024-09-28] MEDS: Ondansetron 4 MG/2 ML Vial IV (14:00)
[2024-09-28 14:13] LABS: Absolute Lymphocyte Count 1.79 X10^3/uL (0.83-4.51); Basophil# 0.04 X10^3/uL; Basophil% 0.5 % (0-1); Eosinophil# 0.11 X10^3/uL; Eosinophils% 1.3 % (0-5); Hematocrit 36.1 % (37-47); Hemoglobin 12.8 g/dL (12.0-15.0); Lymphocyte # 1.79 X10^3/ul (0.83-4.51); Lymphocyte % 21.4 % (19-41); Mean Corp Hgb Conc 35.5 g/dL (32-36); Mean Corpuscular Hgb 32.5 pg (27.0-32.0); Mean Corpuscular Volume 91.6 fL (81-99); Mean Platelet Vol. 9.2 fl (6.2-12.0); Monocyte% 4.8 % (0-10); NRBC Flagged by Analyzer 0 % (0-5); Neutrophil # 6.01 X10^3/uL (2.7-7.7); Neutrophil % 71.6 % (47-70); Platelet Count 317 K/mm3 (150-450); RBC Distribution Width CV 12.5 % (11.6-14.6); RBC Distribution Width SD 41.2 fl (35.1-43.9); Red Blood Count 3.94 M/mm3 (4.2-5.4); White Blood Count 8.4 K/mm3 (4.4-11.0)
[2024-09-28 14:31] LABS: ALB/GLOB Ratio 1.2 RATIO (0.9-2.4); AST(SGOT) 20 U/L (15-37); Alanine Aminotransfer ALT/SGPT 29 U/L (13-56); Albumin, Serum 3.8 g/dL (3.2-5.0); Alkaline Phosphatase 86 U/L (45-117); Anion Gap 5 (5-15); BUN 12 mg/dL (7-18); BUN/Creat Ratio 14.6 RATIO (10-20); Calcium,Total 9.2 mg/dL (8.5-10.1); Chloride 112 mmol/L (98-107); Creatinine, Serum 0.82 mg/dL (0.55-1.02); EST Glomerular Filtration Rate 78 mL/min (>60); Est Glom Filt Rate - Afr Amer 95 mL/min (>60); Estimated Creatinine Clearance 100.67 ml/min; Globulin 3.3 g/dL (2.2-4.2); Glucose 123 mg/dL (74-106); Potassium 3.6 mmol/L (3.5-5.1); Protein, Total 7.1 g/dL (6.4-8.2); Sodium Level 142 mmol/L (136-145)
[2024-09-28 14:32] VITALS: BP 146/71; PULSE 61; RESP 16; O2SAT 97
--- NOTE | 2024-09-28 14:55 | EDS_ITS ---
HPI History of Present Illness Chief Complaint: Dizziness Informant: patient and spouse/S.O. Narrative Narrative: 49-year-old female presenting to the emergency room with chief complaint of dizziness. Patient states that today at approximately 10:30 in the morning she was standing in the classroom when she suddenly became dizzy. States it felt like the room was spinning and then she developed paresthesias around her. Patient went to the nurses office later head down. Symptoms were not abating she eventually came to emergency. She denies any speech difficulty arm or leg symptoms. She states that she feels better with her eyes closed. She denies any headache. She does note a discomfort on the left lateral posterior aspect of her neck. No chest pain no palpitations. She denies any current medical problems. States she is not taking any medications. She states she started her menstrual cycle last night but felt well when she went to school today. Denies any URI symptoms. No ringing in the ears. She denies any vomiting. [facility] Medical History (Updated 09/28/24 @ 16:[address] Kolby Winslow DO) Chest pain Leukocytosis Chronic back pain Depression Anxiety Conjunctivitis Home Medications ?Medication ?Instructions ?Recorded ?Last Taken ?Type multivitamin,hl-wxsb-soofbdvj 1 tab PO QDAY 12/21/17 Unknown History (Complete Multivitamin tablet) pantoprazole 20 mg tablet,delayed 20 mg PO DAILY 07/07/23 Unknown History release Allergy/AdvReac Type Severity Reaction Status Date / Time No Known Allergies Allergy Verified 09/28/24 13:35 Family History Father Diabetes CAD (coronary artery disease) Dementia Mother Breast cancer Surgical History Hx laparoscopic cholecystectomy History of tubal ligation History of back surgery History of tonsillectomy History of history of back fusion Social History Smoking Status: Never smoker alcohol intake: current alcohol intake frequency: a few times a week substance use type: does not use caffeine: Yes ROS ROS ED Constitutional Constitutional ED: Denies chills, fever(s) or weight loss Eyes Eyes: Denies change in vision or diplopia ENT ENT ED: Denies ear pain, rhinorrhea or sore throat Cardiovascular Cardiovascular: Denies chest pain, orthopnea, palpitations or racing heartbeat Respiratory/Chest Respiratory/Chest: Denies cough, dyspnea or orthopnea Gastrointestinal Gastrointestinal: Denies abdominal pain, diarrhea, nausea or vomiting Genitourinary Genitourinary ED: Denies dysuria, hematuria or urinary frequency Musculoskeletal Musculoskeletal: Reports neck pain; Denies arthralgias, back pain or myalgias Integumentary Denies abscess or rash Neurologic Neurologic: Reports paresthesias and other Details: Dizziness ; Denies headache(s) or weakness Psychiatric Psychiatric: Denies anxiety, depression, suicidal ideation or suicidal thoughts Endocrine Endocrinology: Denies polydipsia, polyphagia or polyuria Allergic/Immunologic Allergic/Immunologic ED: Denies mouth swelling, tongue swelling or urticaria EXAM Physical Exam Const Vital Signs: 09/28/24 13:32 09/28/24 13:32 09/28/24 14:32 Temperature 97 F L Temperature Source Temporal Pulse Rate 87 84 61 Respiratory Rate 16 26 H 16 Blood Pressure 180/103 H 153/80 H 146/71 H Blood Pressure Mean 128 104 96 Pulse Ox 100 98 97 Oxygen Delivery Method Room Air Room Air Room Air 09/28/24 15:00 09/28/24 16:00 Temperature Temperature Source Pulse Rate 73 68 Respiratory Rate 14 11 L Blood Pressure 125/95 H Blood Pressure Mean 105 Pulse Ox 99 Oxygen Delivery Method Positive well nourished and well developed General Appearance ED: well developed HEENT Reports normocephalic, head/scalp atraumatic and moist mucous membranes Eyes PERRL and EOMs intact bilaterally Eyes Narrative: I do not appreciate a nystagmus. Neck no lymphadenopathy, supple and no JVD Resp normal respiratory effort and clear to auscultation bilaterally Cardio regular rate, regular rhythm and no murmurs GI normal to inspection, nondistended, normoactive bowel sounds and non-tender Palpation: soft Back/Spine no CVA tenderness and normal ROM Extremity normal to inspection General Extremety ED: Negative for edema General Extremity: Negative for edema Neuro oriented x3, CN's II-XII intact bilaterally and no sensory deficits noted Neuro Narrative: Patient's dizziness/sense of room spinning is present with turning her head and later down but is not necessarily made worse. It is not made better. Negative success with repositioning technique. Sensorium / Orientation: alert Motor Exam: strength 5/5 throughout Psych mental status grossly normal Mood & Affect: Negative for depressed or tearful Skin no rashes or lesions noted and no wounds MDM MDM MDM Narrative Medical decision making narrative: Differential diagnosis includes but not limited to stroke intracranial hemorrhage vertigo arterial dissection brain aneurysm cardiac dysrhythmia pneumonia electrolyte abnormality EKG demonstrates sinus bradycardia with a first-degree AV block at a rate of 59 bpm. White count 8.4 hemoglobin 12.8 platelet count is 317 BMP shows a glucose of 123 normal LFTs normal creatinine 0.82. CTA of the head and neck is negative for aneurysm LVO dissection. My independent interpretation of the plain films of the chest as no acute process normal mediastinal silhouette. Patient received a dose of Zofran as well as p.o. Valium. Repeat examination the patient continues to describe a vague sensation but does not feel that the room is spinning but still does not feel back to her normal self. She continues to feel paresthesias in the face. That is bilateral. The room spinning sensation is no longer present. She states she feels more like she is in a dream state right now. We talked about admission for observation versus home observation. She would prefer to go home. We talked about the possibility of a very small stroke I think this is less likely. Especially in light that her dizziness is resolved. Blood pressure has normalized currently 125/95. At this point patient to be discharged home return if worsening or concerns History & Record Review Discussion w/independent historian: Patient and Significant other Lab Data Attestation: I reviewed the patient's lab results. Labs: Laboratory Results - last 24 hr 09/28/24 14:03 WBC 8.4 RBC 3.94 L Hgb 12.8 Hct 36.1 L MCV 91.6 MCH 32.5 H MCHC 35.5 RDW Std Deviation 41.2 RDW Coeff of Abdulkadir 12.5 Plt Count 317 MPV 9.2 Immature Gran % (Auto) 0.400 Neut % (Auto) 71.6 H Lymph % (Auto) 21.4 [place] % (Auto) 4.8 Eos % (Auto) 1.3 Baso % (Auto) 0.5 Absolute Neuts (auto) 6.0 Absolute Lymphs (auto) 1.79 Nucleated RBC % 0 Sodium 142 Potassium 3.6 Chloride 112 H Carbon Dioxide 25.0 Anion Gap 5 BUN 12 Creatinine 0.82 Estim Creat Clear Calc 100.67 Est GFR (MDRD) Af Amer 95 Est GFR (MDRD) Non-Af 78 BUN/Creatinine Ratio 14.6 Glucose 123 H Calcium 9.2 Total Bilirubin 0.30 AST 20 ALT 29 Alkaline Phosphatase 86 Total Protein 7.1 Albumin 3.8 Globulin 3.3 Albumin/Globulin Ratio 1.2 Radiography Diagnostic Testing: Clinical Impression(s) from Imaging Studies Head/Neck CTA 09/28/24 13:51 IMPRESSION: Normal CTA Head and neck with contrast. Electronically Signed: Christopher Eisenberg MD at 14:51 EST , Chest X-Ray 09/28/24 15:00 IMPRESSION: Normal x-ray examination of the chest. Electronically Signed: Christopher Eisenberg MD at 15:15 EST , EKG Initial EKG: Attestation: I personally reviewed and interpreted this EKG as follows: Comments: Sinus bradycardia first-degree AV block ventricular rate of 59 bpm Discharge Plan Triage Chief Complaint: Dizziness ED Provider: Kolby Winslow Dx/Rx/DC Orders Clinical Impression: Dizziness, Facial paresthesia Instructions: ED Dizziness, Uncertain Cause, ED Vertigo, Unspecified, ED Paraesthesias Prescriptions: No Action multivitamin,jr-wtuy-oqdpzlii [Complete Multivitamin] tablet 1 tab PO QDAY pantoprazole 20 mg tablet,delayed release (DR/EC) 20 mg PO DAILY Primary Care Provider: Care Physician,No Primary Referrals: Care Physician,No Primary [Primary Care Provider] - Activity Restrictions/Additional Instructions: If continued symptoms please return or follow up with primary care Print Language: Bengali Disposition Disposition: Home, Self Care NIHSS NIHSS 1a. Level of Consciousness: Alert; keenly responsive 1b. LOC Questions: Answers BOTH questions correctly. 1c. LOC Commands: Performs both tasks correctly. 2. Best Gaze: Normal 3. Visual: No visual loss 4. Facial Palsy: Normal symmetrical movements 5a. Left Arm: No drift; arm holds 90 (or 45) degrees for full 10 seconds 5b. Right Arm: No drift; arm holds 90 (or 45) degrees for full 10 seconds 6b. Right Leg: No drift; leg holds 30-degree position for full 5 seconds 7. Limb Ataxia: Absent 8. Sensory: Normal; no sensory loss 9. Best Language: No aphasia; normal 10. Dysarthria: Normal 11. Extinction and Inattention: No abnormality Total: 0
[2024-09-28 15:00] VITALS: PULSE 73; RESP 14
--- NOTE | 2024-09-28 15:00 | RAD_ITS ---
STUDY: X-RAY CHEST REASON FOR EXAM: Female, 49 years old. Hypertension. Dizziness. TECHNIQUE: Single AP portable view of the chest. COMPARISON: Comparison is made with prior study August 09, 2019. FINDINGS: EKG electrodes are seen. The lungs are clear and expanded. There is no demonstrated pleural abnormality. Normal size heart. Normal mediastinum and mauricio. Normal visualized pulmonary arteries. Normal visualized aortic arch and descending thoracic aorta. Normal visualized thoracic spine. Normal visualized ribs, clavicles, and shoulders. There is no demonstrated abnormality of the visualized soft tissue structures of the upper abdomen. RAD/Chest 1 View (Portable) IMPRESSION: Normal x-ray examination of the chest. Electronically Signed: Christopher Eisenberg MD at 15:15 EST ,
[2024-09-28 16:00] VITALS: BP 125/95; PULSE 68; RESP 11; O2SAT 99
--- NOTE | 2024-09-28 16:15 | CM.ED ---
Social Work Reason for visit: No PCP Patient verified that she did not have a PCP at this time, resource list provided for local physicians. Patient accepting of same. Joleen Collazo, DENTAL MOLD MAKER, METALLURGICAL INSPECTOR
[2024-09-28 16:39] VITALS: BP 125/95; PULSE 68; RESP 11; TEMP 36.1; O2SAT 99
== END 2024-09-28 16:42 | disposition home or self-care (01) ==
PROVIDERS: Emergency Provider Emergency Medicine; Visit Provider Emergency Medicine
DX: R42 Dizziness and giddiness (principal); R20.2 Paresthesia of skin; I44.0 Atrioventricular block, first degree; R00.1 Bradycardia, unspecified
CPT/HCPCS: 70496; 70498; 71045; 80053; 85025; 93005; 96374; 99284; Q9967; A4216; J2405